=== PATIENT | male | born 1995 | race Caucasian/White ===

== ENCOUNTER 2017-06-16 08:10 | Emergency (ER) | payer OTHER ==
[2017-06-16] MEDS: GI COCKTAIL 50ML BTL(HYOSCYAMINE/MAALOX/LIDOCAINE VISCOUS)(1:3:1) PO (10:08)
[2017-06-16] MEDS: PANTOPRAZOLE 40MG TAB (PROTONIX) PO (10:09)
== END 2017-06-16 10:42 | disposition home or self-care (01) ==
LOC: M ED 08:10
DX: K29.00 Acute gastritis without bleeding (principal)
CPT/HCPCS: 99283

== ENCOUNTER → 2018-12-14 | Outpatient (CLI) | payer OTHER ==
[~2018-12-14] MED LIST: ISOVUE-370 76% 100ML VIAL (Q9967) As Ordered ONE; PROT1TAB2 PO
--- NOTE | 2018-12-15 08:57 | REP ---
Abdomen and pelvis without IV contrast, followed by CT with IV contrast: There is no bowel contrast. The patient complains of left lower quadrant abdominal pain with tenderness to palpation. The patient had left inguinal hernia repair as a child. Question recurrent left inguinal hernia versus a spigelian hernia. There are no comparison studies. The visualized lung carrington are unremarkable. The hepatic parenchyma, gallbladder, pancreas, spleen, adrenals, kidneys and abdominal aorta are unremarkable. There is no periaortic adenopathy or mass. There is no bowel distension or obstruction. The mesentery is unremarkable. There is no ascites. Pelvis: There is no recurrent left inguinal hernia. There is no right inguinal hernia. There is no spigelian hernia on the right or the left. There is no pelvic adenopathy or mass. There is no ascites. The bladder is unremarkable. The pelvic bowel loops are unremarkable. There is no bowel kinking or tethering. 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 Impression: There is no inguinal hernia on the right on the left. There is no spigelian hernia on the right on the left. There is no bowel tethering or kinking. Otherwise, negative CT of the abdomen pelvis. 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 There is an accessory ossicle at the roof of the right acetabulum laterally Electronically Signed by George Ramirez MD 12/15/2018 08:50 A
== END ==
LOC: M RAD 16:14
PROVIDERS: ATTEND Family Medicine
DX: R10.32 Left lower quadrant pain (principal)
CPT/HCPCS: 74178; Q9967